=== PATIENT | male | born 1950 | race Caucasian/White ===

== ENCOUNTER 2022-07-25 09:17 | Day surgery (SDC) | payer MEDICARE, BC ==
[~2022-07-25] VITALS: Ht 175.3 cm; Wt 140.6 kg
[~2022-07-25 09:17] MED LIST: GLUCOSAMINE1500 M1 PO; LISINOP/HCTZ1 TAB PO; TOPROL XL50 MG PO
[2022-07-25 12:00] VITALS: BP 111/73
== END 2022-07-25 12:21 | disposition home or self-care (01) ==
LOC: ENDO 09:17 → ORM 12:45
PROVIDERS: ATTEND Surgery
PROC: 0DBH8ZX Excision of Cecum, Via Natural or Artificial Opening Endoscopic, Diagnostic (ICD-10-PCS; principal; 2022-07-25)
PROC: 0DBL8ZX Excision of Transverse Colon, Via Natural or Artificial Opening Endoscopic, Diagnostic (ICD-10-PCS; 2022-07-25)
DX: D12.0 Benign neoplasm of cecum (principal); K57.30 Diverticulosis of large intestine without perforation or abscess without bleeding; K64.8 Other hemorrhoids; I10 Essential (primary) hypertension